=== PATIENT | male | born 1970 | race Caucasian/White ===

== ENCOUNTER → 2019-08-04 | Outpatient (CLI) | payer BC ==
--- NOTE | 2019-08-04 13:01 | REP ---
RIGHT KNEE SERIES: Five views right knee performed. There is no acute fracture, dislocation, or intrinsic bone disease. Joint spaces appear normal with no significant arthritic change. There may be a small joint effusion. IMPRESSION: Possible small joint effusion. Otherwise negative exam. Electronically Signed by Aniceto Noe MD 08/04/2019 03:59 P
== END ==
LOC: M WUC 11:11
PROVIDERS: ATTEND Nurse Practitioner Family
DX: M25.561 Pain in right knee (principal)